=== PATIENT | male | born 1980 | race Two or more races ===

== ENCOUNTER 2021-11-28 21:33 | Emergency (ER) | payer BC, OTHER ==
[2021-11-28] MEDS ORDERED: Metoprolol Tartrate 50 MG Tab PO ONE (22:07)
[2021-11-29 00:06] VITALS: BP 145/105; PULSE 68
== END 2021-11-29 00:07 | disposition home or self-care (01) ==
LOC: JD.ED 21:33
DX: I10 Essential (primary) hypertension (principal); Z79.899 Other long term (current) drug therapy
CPT/HCPCS: 36415; 80053; 85025; 93005; 99284; A9270; 93010; 99283

== ENCOUNTER 2022-01-05 06:59 | Emergency (ER) | payer BC ==
[2022-01-05 08:35] VITALS: BP 137/90; PULSE 118
[2022-01-05 09:17] LABS: CORONAVIRUS COVID-19 NAA POSITIVE (NEGATIVE)
[2022-01-05] MEDS ORDERED: Ketorolac 30 MG/ML SDV IVPUSH ONE (09:46)
[2022-01-05] MEDS ORDERED: Metoclopramide 10 MG/2 ML SDV IVPUSH ONE (09:46)
[2022-01-05] MEDS ORDERED: Sodium Chloride 0.9% 1,000 ML IV ONE (09:46)
== END 2022-01-05 12:35 | disposition home or self-care (01) ==
LOC: JD.ED 06:59
DX: U07.1 COVID-19 (principal); R51.9 Headache, unspecified; I10 Essential (primary) hypertension; Z79.899 Other long term (current) drug therapy
CPT/HCPCS: 0241U; 96361; 96374; 96375; 99284; J1885; J2765; J7030

== ENCOUNTER 2025-03-12 17:46 | Emergency (ER) | payer BC ==
[2025-03-12 19:07] LABS: CORONAVIRUS COVID-19 NAA NEGATIVE (NEGATIVE); INFLUENZA A NAA NEGATIVE (NEGATIVE); RESPIRATORY SYNCYTIAL VIR NAA NEGATIVE (NEGATIVE)
[2025-03-12 20:36] VITALS: BP 96/67; PULSE 74
== END 2025-03-12 20:15 | disposition home or self-care (01) ==
LOC: JD.ED 17:46
DX: J06.9 Acute upper respiratory infection, unspecified (principal); B97.89 Other viral agents as the cause of diseases classified elsewhere; I10 Essential (primary) hypertension; Z79.899 Other long term (current) drug therapy; Z86.16 Personal history of COVID-19; Z90.49 Acquired absence of other specified parts of digestive tract
CPT/HCPCS: 87637; 87651; 99283